=== PATIENT | male | born 1945 | race Caucasian/White ===

== ENCOUNTER 2020-08-08 12:54 | Inpatient (IN) | payer MEDICARE ==
[2020-08-08] MEDS ORDERED: ASPIRIN 81 MG PO STA (12:55)
[2020-08-08] MEDS ORDERED: NITROGLYCERIN SL TABS 0.4 MG TAB SUBLINGUAL PRN (12:55)
[2020-08-08] MEDS ORDERED: HEPARIN SODIUM,PORCINE 5,000 UNIT/ML 1 ML VIAL IV PRN (12:55)
[2020-08-08] MEDS ORDERED: NITROGLYCERIN-D5W PMX 50 MG in DEXTROSE/WATER 1 250ML.BAG IV ONE (12:57)
[2020-08-08] MEDS: HEPARIN SOD,PORK IN 0.45% NACL 25,000 UNIT in 0.45% NACL 1 250ML.BAG IV SCH (13:14)
--- NOTE | 2020-08-08 13:30 | ED ---
General Adult HPI - General Chief complaint: Chest Pain Stated complaint: Cardiac issues Time Seen by Provider: 08/08/20 12:55 Source: patient, RN/MD (Spoke with Dr. Hopson from [facility]), RN notes reviewed, old records reviewed (Review of report from [facility]) Mode of arrival: EMS Limitations: no limitations - History of Present Illness Initial comments: Patient is a pleasant 74-year-old male presenting to the emergency Department as a transfer from [facility] for chest pain. Patient woke with symptoms this morning. Symptoms are near resolved at this time. Patient has had chest pressure without radiation. No associated dyspnea, nausea, or diaphoresis. Patient was noticed to have normal EKG 2 with elevated troponin of 0.19 there. Patient was given heparin and nitroglycerin drips with improvement of symptoms. Patient has previously seen Dr. Enriquez here. Patient states he did have similar symptoms with heart attack years ago. - Related Data Allergies Allergy/AdvReac Type Severity Reaction Status Date / Time No Known Allergies Allergy Verified 08/08/20 13:09 Review of Systems ROS Statement: Those systems with pertinent positive or pertinent negative responses have been documented in the HPI. ROS Other: All systems not noted in ROS Statement are negative. Constitutional: Denies: fever Eyes: Denies: eye pain ENT: Denies: ear pain Respiratory: Denies: dyspnea Cardiovascular: Reports: chest pain Endocrine: Denies: fatigue Gastrointestinal: Denies: abdominal pain Genitourinary: Denies: dysuria Musculoskeletal: Denies: back pain Skin: Denies: rash Neurological: Denies: weakness Past Medical History Past Medical History: Hypertension, Myocardial Infarction ([place]) History of Any Multi-Drug Resistant Organisms: None Reported Past Surgical History: Orthopedic Surgery Smoking Status: Current every day smoker Past Alcohol Use History: None Reported Past Drug Use History: None Reported General Exam Limitations: no limitations General appearance: alert, in no apparent distress Head exam: Present: normocephalic Eye exam: Present: normal appearance Neck exam: Present: normal inspection Respiratory exam: Present: normal lung sounds bilaterally. Absent: chest wall tenderness Cardiovascular Exam: Present: regular rate, normal rhythm Expanded Peripheral pulses: 2+: Radial (R), Radial (L), Dorsalis Pedis (R), Dorsalis Pedis (L) GI/Abdominal exam: Present: soft. Absent: tenderness Extremities exam: Present: normal inspection. Absent: pedal edema, calf tender ness Neurological exam: Present: alert Psychiatric exam: Present: normal affect, normal mood Skin exam: Present: normal color Course Vital Signs 08/08/20 08/08/20 13:02 13:20 Temperature 98.0 F Pulse Rate 71 70 Respiratory 18 18 Rate Blood Pressure 178/114 175/123 O2 Sat by Pulse 97 94 L Oximetry Medical Decision Making - Medical Decision Making Case was discussed with Dr. shipman, who will admit covering for Dr. [place]. Case also discussed with Dr. Veliz with cardiology. Disposition Clinical Impression: Acute non-ST elevation myocardial infarction (NSTEMI) Disposition: ADMITTED IP TO THIS HOSP Is patient prescribed a controlled substance at d/c from ED?: No Decision Time: 13:31
[2020-08-08] MEDS ORDERED: MORPHINE SULFATE 4 MG/ML SYRINGE IVP STA (14:00)
--- NOTE | 2020-08-08 15:46 | P.HPIM ---
History of Present Illness this is a pleasant 74 years old male with past medical history of hypertension, possible myocardial infarction, smokes cigarettes.patient was transferred from [facility] for chest pain.patient states that he has chest pain of one-day duration, and the left side, nonradiating, rated as 10/10 in severity currently feels better after he got morphine. With little dyspnea. Patient denies abdominal pain or nausea vomiting. No diarrhea. No burning in urination. No fever patient states that he smokes half pack per day, he drinks liquor dailybut he did not specify how Much. He denies illicit drugs on admission his vitals were stable however his blood pressure was on the high side 181/100. EKG showing sinus rhythm with PACs, with a rate at 74 with bifascicular block. at [facility] his troponin were elevated at 0.19 on admission his blood pressure was elevated 181/100, improved to 151/100 Patient is already on heparin drip and nitroglycerin drips upon discharge from [facility]. EKG from [facility] showing normal sinus rhythm at [address]-T changes and 68 BPM with no significant ST-T changes. Labs: WBC of 9.4K, hemoglobin 15.4, platelets 260 8K. INR 0.9. Creatinine is elevated to 1.6, sodium is low 127. Magnesium 2.0, potassium 4.2. Troponin is elevated 0.19. Covid this nondetected by rapid test Review of Systems CONSTITUTIONAL: No fever, no malaise, no fatigue. HEENT: No recent visual problems or hearing problems. Denied any sore throat. CARDIOVASCULAR: No orthopnea, PND, no palpitations, no syncope. PULMONARY: No shortness of breath, no cough, no hemoptysis. GASTROINTESTINAL: No diarrhea, no nausea, no vomiting, no abdominal pain. Normoactive bowel sounds. NEUROLOGICAL: No headaches, no weakness, no numbness. HEMATOLOGICAL: Denies any bleeding or petechiae. GENITOURINARY: Denies any burning micturition, frequency, or urgency. MUSCULOSKELETAL/RHEUMATOLOGICAL: Denies any joint pain, swelling, or any muscle pain. ENDOCRINE: Denies any polyuria or polydipsia. Past Medical History Past Medical History: Hypertension, Myocardial Infarction ([place]) History of Any Multi-Drug Resistant Organisms: None Reported Past Surgical History: Orthopedic Surgery Smoking Status: Current every day smoker Past Alcohol Use History: None Reported Past Drug Use History: None Reported Medications and Allergies Home Medications Medication Instructions Recorded Confirmed Type Aspirin [Winona Aspirin EC] 81 mg PO DAILY@1200 08/08/20 08/08/20 History Gabapentin 300 mg PO TID 08/08/20 08/08/20 History Ibuprofen [Motrin] 800 mg PO TID 08/08/20 08/08/20 History Metoprolol Tartrate [Lopressor] 50 mg PO DAILY 08/08/20 08/08/20 History busPIRone HCL 10 mg PO BID 08/08/20 08/08/20 History lisinopriL [Prinivil] 20 mg PO HS 08/08/20 08/08/20 History oxyCODONE-APAP 10-325MG [Percocet 1 tab PO BID 08/08/20 08/08/20 History 10-325 mg] Allergies Allergy/AdvReac Type Severity Reaction Status Date / Time No Known Allergies Allergy Verified 08/08/20 14:42 Physical Exam Vitals: Vital Signs Temp Pulse Resp BP Pulse Ox 08/08/20 13:59 74 18 181/100 100 08/08/20 13:20 70 18 175/123 94 L 08/08/20 13:02 98.0 F 71 18 178/114 97 Intake and Output 08/07/20 08/08/20 08/08/20 22:59 06:59 14:59 Intake Total 0.2 Balance 0.2 Intake: Intake, IV Titration 0.2 Amount Nitroglycerin-D5w Pmx 50 0.2 mg In Dextrose/Water 1 250ml.bag @ 5 MCG/MIN 1.5 mls/hr IV .Q24H ONE Rx#: [id number] Other: Weight 89.811 kg GENERAL: The patient is alert and oriented x3, not in any acute distress. Well developed, well nourished. HEENT: Pupils are round and equally reacting to light. EOMI. No scleral icterus. No conjunctival pallor. Normocephalic, atraumatic. No pharyngeal erythema. No thyromegaly. CARDIOVASCULAR: S1 and S2 present. No murmurs, rubs, or gallops. PULMONARY: Chest is clear to auscultation, no wheezing or crackles. ABDOMEN: Soft, nontender, nondistended, normoactive bowel sounds. No palpable organomegaly. MUSCULOSKELETAL: No joint swelling or deformity. EXTREMITIES: No cyanosis, clubbing, or pedal edema. NEUROLOGICAL: Gross neurological examination did not reveal any focal deficits. SKIN: No rashes. No petechiae Assessment and Plan Assessment: possible non-STEMI Hypertension, uncontrolled acute kidney injury Hyponatremia Nicotine dependence alcohol abuse Plan: this is a pleasant 74 years old male who presents with non-STEMI. Continue with heparin drip, nitroglycerindrip.cardiologyteam were consulted by emergency room team will follow up. Monitor sodium and creatinine and troponin closely.check echocardiogram. Telemetry.monitor blood pressure Labs and medication were reviewed.. Continue same treatment. Continue with symptomatic treatment. Resume home medication. Monitor lytes and vitals. DVT and GI prophylaxis. Further recommendations depends on the clinical course of the patient DVT prophylaxis: heparin GI Prophylaxis: Pepcid PT/OT: Pending Prognosis is guarded
[2020-08-08 16:15] LABS: Basophils # (A) 0.1 k/uL (0-0.2); Basophils % (A) 1 %; Eosinophils # (A) 0.3 k/uL (0-0.7); Eosinophils % (A) 4 %; HCT 47.3 % (39.0-53.0); HGB 16.1 gm/dL (13.0-17.5); Lymphocytes # (A) 1.5 k/uL (1.0-4.8); Lymphocytes % (A) 19 %; MCH 34.2 pg (25.0-35.0); MCHC 33.9 g/dL (31.0-37.0); MCV 100.7 fL (80.0-100.0); Mean Platelet Volume 6.5; Monocytes # (A) 0.5 k/uL (0-1.0); Monocytes % (A) 6 %; Neutrophils # (A) 5.6 k/uL (1.3-7.7); Neutrophils % (A) 68 %; Platelet Count 279 k/uL (150-450); RDW 11.8 % (11.5-15.5); WBC 8.2 k/uL (3.8-10.6)
[2020-08-08 16:27] LABS: Calcium 8.9 mg/dL (8.4-10.2); Potassium 4.4 mmol/L (3.5-5.1)
[2020-08-08] MEDS: GABAPENTIN 100 MG CAP PO SCH ×2 (16:37→21:57)
[2020-08-08] MEDS: METOPROLOL TARTRATE 50 MG TAB PO SCH (16:37)
[2020-08-08] MEDS: lisinopriL 20 MG TAB PO SCH (21:41)
[2020-08-08] MEDS: busPIRone HCl 10 MG TAB PO SCH (21:41)
[2020-08-08] MEDS: GABAPENTIN 300 MG CAP PO SCH (22:31)
[2020-08-09] MEDS ORDERED: ACETAMINOPHEN TAB 325 MG TAB PO PRN (01:22)
[2020-08-09] MEDS: hydrALAZINE HCL 20 MG/ML 1 ML VIAL IVP PRN (03:52)
[2020-08-09] MEDS ORDERED: KETOROLAC 15 MG/ML 1 ML VIAL IVP STA (06:00)
[2020-08-09] MEDS ORDERED: NITROGLYCERIN SL TABS 0.4 MG TAB SUBLINGUAL STA (06:51)
[2020-08-09] MEDS ORDERED: HYDROmorphone 0.5 MG/0.5 ML SYRINGE IVP STA (06:52)
[2020-08-09] MEDS ORDERED: amLODIPine 5 MG TAB PO STA ×2 (06:52→12:01)
[2020-08-09] MEDS: HEPARIN SOD,PORK IN 0.45% NACL 25,000 UNIT in 0.45% NACL 1 250ML.BAG IV SCH (07:04)
[2020-08-09 07:59] LABS: Basophils % (A) 0 %; Eosinophils # (A) 0.3 k/uL (0-0.7); Eosinophils % (A) 3 %; HCT 46.4 % (39.0-53.0); HGB 15.4 gm/dL (13.0-17.5); Lymphocytes # (A) 1.4 k/uL (1.0-4.8); Lymphocytes % (A) 15 %; MCH 33.1 pg (25.0-35.0); MCHC 33.2 g/dL (31.0-37.0); MCV 99.5 fL (80.0-100.0); Mean Platelet Volume 6.5; Monocytes # (A) 0.6 k/uL (0-1.0); Monocytes % (A) 6 %; Neutrophils % (A) 75 %; Platelet Count 301 k/uL (150-450); RBC 4.66 m/uL (4.30-5.90); RDW 12.4 % (11.5-15.5); WBC 9.4 k/uL (3.8-10.6)
[2020-08-09 08:12] LABS: Calcium 9.1 mg/dL (8.4-10.2); Potassium 4.3 mmol/L (3.5-5.1)
--- NOTE | 2020-08-09 08:42 | P.PN ---
Subjective this is a pleasant 74 years old male with past medical history of hypertension, possible myocardial infarction, smokes cigarettes.patient was transferred from [facility] for chest pain.patient states that he has chest pain of one-day duration, and the left side, nonradiating, rated as 10/10 in severity currently feels better after he got morphine. With little dyspnea. Patient denies abdominal pain or nausea vomiting. No diarrhea. No burning in urination. No fever patient states that he smokes half pack per day, he drinks liquor dailybut he did not specify how Much. He denies illicit drugs on admission his vitals were stable however his blood pressure was on the high side 181/100. EKG showing sinus rhythm with PACs, with a rate at 74 with bifascicular block. at [facility] his troponin were elevated at 0.19 on admission his blood pressure was elevated 181/100, improved to 151/100 Patient is already on heparin drip and nitroglycerin drips upon discharge from [facility]. EKG from [facility] showing normal sinus rhythm at [address]-T changes and 68 BPM with no significant ST-T changes. Labs: WBC of 9.4K, hemoglobin 15.4, platelets 260 8K. INR 0.9. Creatinine is elevated to 1.6, sodium is low 127. Magnesium 2.0, potassium 4.2. Troponin is elevated 0.19. Covid this nondetected by rapid test 08/09/2020 Patient with minimal chest pain today and he continued to be on heparin drip and nitro drip blood pressure this morning is 159/95, rest of vitals are stable. His blood pressure is 159/95, rest of vitals are stable. Heart rate 72. Hemoglobin on postoperative CBC is normal. Sodium 132, recipient is unremarkable. Creatinine is came back to normal at 1.0 We will continue with aspirin, metoprolol. [employer] team on the case and they are going to evaluated the patient. Review of Systems CONSTITUTIONAL: No fever, no malaise, no fatigue. HEENT: No recent visual problems or hearing problems. Denied any sore throat. CARDIOVASCULAR: No orthopnea, PND, no palpitations, no syncope. PULMONARY: No shortness of breath, no cough, no hemoptysis. GASTROINTESTINAL: No diarrhea, no nausea, no vomiting, no abdominal pain. Normoactive bowel sounds. NEUROLOGICAL: No headaches, no weakness, no numbness. HEMATOLOGICAL: Denies any bleeding or petechiae. Active Medications Generic Name Dose Route Start Last Admin Trade Name Freq PRN Reason Stop Dose Admin Acetaminophen 650 mg 08/09/20 01:22 08/09/20 01:33 Acetaminophen Tab 325 Mg Tab PO 650 mg Q6HR PRN Administration Fever and/ or Pain Aspirin 325 mg 08/09/20 09:00 Aspirin 325 Mg Tab PO DAILY FRANCIS Buspirone HCl 10 mg 08/08/20 21:00 08/08/20 21:41 Buspirone Hcl 10 Mg Tab PO 10 mg BID FRANCIS Administration Gabapentin 300 mg 08/08/20 22:00 08/08/20 22:31 Gabapentin 300 Mg Cap PO Not Given [facility] Heparin Sodium (Porcine) 0 unit 08/08/20 12:55 08/09/20 01:41 Heparin Sodium,Porcine 5,000 Unit/Ml 1 Ml Vial IV 2,225 unit Q6HR PRN Administration Low PTT Protocol Hydralazine HCl 10 mg 08/09/20 03:37 08/09/20 03:52 Hydralazine Hcl 20 Mg/Ml 1 Ml Vial IVP 10 mg Q6HR PRN Administration Blood Pressure - High Heparin Sodium/Sodium Chloride 250 mls @ 10.005 mls/hr 08/08/20 13:00 08/09/20 07:04 25,000 unit/ Sodium Chloride IV 13.14 units/kg/hr .Q24H FRANCIS 11.801 mls/hr Administration Protocol 11.14 UNITS/KG/HR Lisinopril 20 mg 08/08/20 21:00 08/08/20 21:41 Lisinopril 20 Mg Tab PO 20 mg HS FRANCIS Administration Metoprolol Tartrate 50 mg 08/08/20 15:45 08/08/20 16:37 Metoprolol Tartrate 50 Mg Tab PO 50 mg DAILY FRANCIS Administration Nitroglycerin 0.4 mg 08/08/20 12:55 08/09/20 06:57 Nitroglycerin Sl Tabs 0.4 Mg Tab SUBLINGUAL 0.4 mg Q5M PRN Administration Chest Pain Sodium Chloride 10 ml 08/08/20 21:00 08/08/20 21:41 Sodium Chloride 0.9% Flush 10 Ml Syringe IV 10 ml BID FRANCIS Administration Objective - Vital Signs Vital signs: Vital Signs Temp 98.2 F 08/09/20 03:14 Pulse 72 08/09/20 04:00 Resp 16 08/09/20 04:00 BP 159/95 08/09/20 07:08 Pulse Ox 96 08/09/20 03:14 Intake & Output 08/08/20 08/09/20 08/09/20 18:59 06:59 18:59 Intake Total 12.65 123.062 65.299 Output Total 1050 Balance 12.65 -926.938 65.299 Weight 89.811 kg 87.5 kg Intake: Intake, IV Titration 12.65 123.062 65.299 Amount Heparin Sod,Pork in 0.45% 123.062 65.299 NaCl 25,000 unit In 0.45 % NaCl 1 250ml.bag @ 11. 14 UNITS/KG/HR 10.005 mls /hr IV .Q24H FRANCIS Rx#: [id number] Nitroglycerin-D5w Pmx 50 12.65 mg In Dextrose/Water 1 250ml.bag @ 5 MCG/MIN 1.5 mls/hr IV .Q24H ONE Rx#: [id number] Output: Urine 1050 Other: Voiding Method Urinal # Voids 1 - Exam GENERAL: The patient is alert and oriented x3, not in any acute distress. Well developed, well nourished. HEENT: Pupils are round and equally reacting to light. EOMI. No scleral icterus. No conjunctival pallor. Normocephalic, atraumatic. No pharyngeal erythema. No thyromegaly. CARDIOVASCULAR: S1 and S2 present. No murmurs, rubs, or gallops. PULMONARY: Chest is clear to auscultation, no wheezing or crackles. ABDOMEN: Soft, nontender, nondistended, normoactive bowel sounds. No palpable organomegaly. MUSCULOSKELETAL: No joint swelling or deformity. EXTREMITIES: No cyanosis, clubbing, or pedal edema. NEUROLOGICAL: Gross neurological examination did not reveal any focal deficits. SKIN: No rashes. no petechiae. - Labs CBC & Chem 7: 08/09/20 07:36 08/09/20 07:36 Labs: Abnormal Lab Results - Last 24 Hours (Table) 08/08/20 08/08/20 08/08/20 Range/Units 15:15 15:59 15:59 MCV 100.7 H (80.0-100.0) fL APTT 45.0 H (22.0-30.0) sec Sodium 131 L (137-145) mmol/L Chloride 97 L (98-107) mmol/L BUN 30 H (9-20) mg/dL Creatinine 1.35 H (0.66-1.25) mg/dL Glucose 144 H (74-99) mg/dL HDL Cholesterol (40-60) mg/dL 08/09/20 08/09/20 08/09/20 Range/Units 00:43 07:36 07:36 MCV (80.0-100.0) fL APTT 35.8 H 45.1 H (22.0-30.0) sec Sodium 132 L (137-145) mmol/L Chloride (98-107) mmol/L BUN 23 H (9-20) mg/dL Creatinine (0.66-1.25) mg/dL Glucose 131 H (74-99) mg/dL HDL Cholesterol 93 H (40-60) mg/dL Assessment and Plan Assessment: possible non-STEMI Hypertension, uncontrolled acute kidney injury Hyponatremia Nicotine dependence alcohol abuse Plan: this is a pleasant 74 years old male who presents with non-STEMI. Continue with heparin drip, nitroglycerindrip.cardiologyteam were consulted by emergency room team will follow up. Monitor sodium and creatinine and troponin closely.check echocardiogram. Telemetry.monitor blood pressure Labs and medication were reviewed.. Continue same treatment. Continue with symptomatic treatment. Resume home medication. Monitor lytes and vitals. DVT and GI prophylaxis. Further recommendations depends on the clinical course of the patient DVT prophylaxis: heparin GI Prophylaxis: Pepcid PT/OT: Pending Prognosis is guarded
--- NOTE | 2020-08-09 08:57 | P.CRDCN ---
History of Present Illness Consult date: 08/09/20 Consult reason: chest pain Chief complaint: Chest pain History of present illness: This is a 74-year-old gentleman who follows with Dr. Zehra Enriquez in the office. He has a history of hypertension, questionable prior myocardial infarction in the past, he never underwent a cardiac catheterization in the past according to him, history of nicotine dependence, patient also drinks alcoholic beverages daily. Patient did have a nuclear stress test performed in the office in June 2018 which revealed some inferior lateral fixed defect with global decrease in contractility. The patient presented to [facility] with symptoms of chest discomfort. He states that he woke up in the morning had midsternal chest discomfort, states that it was a moderate to severe, worsened with taking a deep breath. Patient does have a productive cough, he states that this is normal for him for several years of smoking. He does state at that time it was hard to take a deep breath but didn't feel more short of breath than his usual. He denies any diaphoresis. EKG shows a normal sinus rhythm with a right bundle branch block pattern, left anterior fascicular block. Upon review of the rhythm strips from the EMS, it does appear that during time of chest pain patient did have some ST changes noted. His blood pressure on arrival was 178/114, heart rate in the 70s, respirations 18, temp 98.2, 97% on 2 L of ox ygen. He was initiated here on IV heparin and IV nitroglycerin drip. Blood pressure this morning 158/90 with a heart rate in the 70s. IV nitroglycerin was discontinued this morning because patient was complaining of a severe headache. White blood cell count 8.2, hemoglobin 16.1, platelet count 279. Sodium 131, potassium 4.4, BUN 30, creatinine 1.3. Troponins 0.025, 0.0-4, 0.018. Patient is currently on IV heparin drip, aspirin, lisinopril 20 mg daily, metoprolol sesame 50 mg daily. We will start the patient on Lipitor, obtain an echocardiogram with Doppler study. Past Medical History Past Medical History: Hypertension, Myocardial Infarction ([place]) History of Any Multi-Drug Resistant Organisms: None Reported Past Surgical History: Orthopedic Surgery Smoking Status: Current every day smoker Past Alcohol Use History: None Reported Past Drug Use History: None Reported Medications and Allergies Home Medications Medication Instructions Recorded Confirmed Type Aspirin [Wildwood Aspirin EC] 81 mg PO DAILY@1200 08/08/20 08/08/20 History Gabapentin 300 mg PO TID 08/08/20 08/08/20 History Ibuprofen [Motrin] 800 mg PO TID 08/08/20 08/08/20 History Metoprolol Tartrate [Lopressor] 50 mg PO DAILY 08/08/20 08/08/20 History busPIRone HCL 10 mg PO BID 08/08/20 08/08/20 History lisinopriL [Prinivil] 20 mg PO HS 08/08/20 08/08/20 History oxyCODONE-APAP 10-325MG [Percocet 1 tab PO BID 08/08/20 08/08/20 History 10-325 mg] Allergies Allergy/AdvReac Type Severity Reaction Status Date / Time No Known Allergies Allergy Verified 08/08/20 14:42 Physical Exam Vitals: Vital Signs Temp Pulse Pulse Resp BP BP Pulse Ox 08/09/20 07:08 159/95 08/09/20 07:00 156/107 08/09/20 06:48 220/115 08/09/20 04:33 187/100 08/09/20 04:00 72 16 08/09/20 03:14 98.2 F 72 16 161/131 96 08/09/20 00:00 65 17 08/08/20 23:18 98.1 F 65 17 154/95 97 08/08/20 20:00 97.7 F 65 17 161/95 95 08/08/20 17:32 154/90 08/08/20 16:00 98.2 F 67 16 177/93 98 08/08/20 15:42 80 18 151/100 97 08/08/20 13:59 74 18 181/100 100 08/08/20 13:20 70 18 175/123 94 L 08/08/20 13:02 98.0 F 71 18 178/114 97 Intake and Output 08/08/20 08/09/20 08/09/20 22:59 06:59 14:59 Intake Total 12.45 123.062 65.299 Output Total 750 300 Balance -737.55 -176.938 65.299 Intake: Intake, IV Titration 12.45 123.062 65.299 Amount Heparin Sod,Pork in 0.45% 123.062 65.299 NaCl 25,000 unit In 0.45 % NaCl 1 250ml.bag @ 11. 14 UNITS/KG/HR 10.005 mls /hr IV .Q24H [facility] Rx#: [id number] Nitroglycerin-D5w Pmx 50 12.45 mg In Dextrose/Water 1 250ml.bag @ 5 MCG/MIN 1.5 mls/hr IV .Q24H [facility] Rx#: [id number] Output: Urine 750 300 Other: Voiding Method Urinal Urinal # Voids 3 1 Weight 87.5 kg PHYSICAL EXAMINATION: GENERAL: 74-year-old gentleman in no acute distress at the time of my examination HEENT: Head is atraumatic, normocephalic. Pupils equal, round. Sclera anicteric. Conjunctiva are clear. Mucous membranes of the mouth are moist. Neck is supple. There is no elevated jugular venous pressure. No carotid bruit is heard. HEART EXAMINATION: Heart S1, S2 normal. No murmur or gallop heard. CHEST EXAMINATION:Lungs reveal scattered coarse rhonchi throughout. ABDOMEN: Soft, obese, nontender. Bowel sounds are heard. No organomegaly noted. EXTREMITIES: 2+ peripheral pulses with trace evidence of peripheral edema and no calf tenderness noted. NEUROLOGIC patient is awake, alert and oriented X3 . Results 08/09/20 07:36 08/09/20 07:36 Cardiac Enzymes 08/08/20 08/08/20 08/08/20 Range/Units 15:15 18:45 22:56 Troponin I 0.025 0.024 0.018 (0.000-0.034) ng/mL Coagulation 08/08/20 08/09/20 08/09/20 Range/Units 15:15 00:43 07:36 APTT 45.0 H 35.8 H 45.1 H (22.0-30.0) sec Lipids 08/09/20 Range/Units 07:36 Triglycerides 95 (<150) mg/dL Cholesterol 197 (<200) mg/dL HDL Cholesterol 93 H (40-60) mg/dL CBC 08/08/20 08/09/20 Range/Units 15:59 07:36 WBC 8.2 9.4 (3.8-10.6) k/uL RBC 4.70 4.66 (4.30-5.90) m/uL Hgb 16.1 15.4 (13.0-17.5) gm/dL Hct 47.3 46.4 (39.0-53.0) % Plt Count 279 301 (150-450) k/uL Comprehensive Metabolic Panel 08/08/20 08/09/20 Range/Units 15:59 07:36 Sodium 131 L 132 L (137-145) mmol/L Potassium 4.4 4.3 (3.5-5.1) mmol/L Chloride 97 L 101 (98-107) mmol/L Carbon Dioxide 28 25 (22-30) mmol/L BUN 30 H 23 H (9-20) mg/dL Creatinine 1.35 H 1.05 (0.66-1.25) mg/dL Glucose 144 H 131 H (74-99) mg/dL Calcium 8.9 9.1 (8.4-10.2) mg/dL Current Medications Generic Name Dose Route Start Last Admin Trade Name Freq PRN Reason Stop Dose Admin Acetaminophen 650 mg 08/09/20 01:22 08/09/20 01:33 Acetaminophen Tab 325 Mg Tab PO 650 mg Q6HR PRN Administration Fever and/ or Pain Aspirin 325 mg 08/09/20 09:00 Aspirin 325 Mg Tab PO DAILY [facility] Buspirone HCl 10 mg 08/08/20 21:00 08/08/20 21:41 Buspirone Hcl 10 Mg Tab PO 10 mg BID [facility] Administration Gabapentin 300 mg 08/08/20 22:00 08/08/20 22:31 Gabapentin 300 Mg Cap PO Not Given TID [facility] Heparin Sodium (Porcine) 0 unit 08/08/20 12:55 08/09/20 01:41 Heparin Sodium,Porcine 5,000 Unit/Ml 1 Ml Vial IV 2,225 unit Q6HR PRN Administration Low PTT Protocol Hydralazine HCl 10 mg 08/09/20 03:37 08/09/20 03:52 Hydralazine Hcl 20 Mg/Ml 1 Ml Vial IVP 10 mg Q6HR PRN Administration Blood Pressure - High Heparin Sodium/Sodium Chloride 250 mls @ 10.005 mls/hr 08/08/20 13:00 08/09/20 07:04 25,000 unit/ Sodium Chloride IV 13.14 units/kg/hr .Q24H [facility] 11.801 mls/hr Administration Protocol 11.14 UNITS/KG/HR Lisinopril 20 mg 08/08/20 21:00 08/08/20 21:41 Lisinopril 20 Mg Tab PO 20 mg HS [facility] Administration Metoprolol Tartrate 50 mg 08/08/20 15:45 08/08/20 16:37 Metoprolol Tartrate 50 Mg Tab PO 50 mg DAILY [facility] Administration Nitroglycerin 0.4 mg 08/08/20 12:55 08/09/20 06:57 Nitroglycerin Sl Tabs 0.4 Mg Tab SUBLINGUAL 0.4 mg Q5M PRN Administration Chest Pain Sodium Chloride 10 ml 08/08/20 21:00 08/08/20 21:41 Sodium Chloride 0.9% Flush 10 Ml Syringe IV 10 ml BID [facility] Administration Intake and Output 08/08/20 08/09/20 08/09/20 22:59 06:59 14:59 Intake Total 12.45 123.062 65.299 Output Total 750 300 Balance -737.55 -176.938 65.299 Intake: Intake, IV Titration 12.45 123.062 65.299 Amount Heparin Sod,Pork in 0.45% 123.062 65.299 NaCl 25,000 unit In 0.45 % NaCl 1 250ml.bag @ 11. 14 UNITS/KG/HR 10.005 mls /hr IV .Q24H [facility] Rx#: [id number] Nitroglycerin-D5w Pmx 50 12.45 mg In Dextrose/Water 1 250ml.bag @ 5 MCG/MIN 1.5 mls/hr IV .Q24H [facility] Rx#: [id number] Output: Urine 750 300 Other: Voiding Method Urinal Urinal # Voids 3 1 Weight 87.5 kg 08/09/20 07:36 08/09/20 07:36 EKG Interpretations (text) EKG shows a normal sinus rhythm with a right bundle branch block pattern and left anterior fascicular block, nonspecific ST-T wave changes Assessment and Plan Plan: Assessment and plan #1 chest pain, possible acute coronary syndrome. Troponins of 0.025, 0.0-4, 0.018. EKG shows a normal sinus rhythm with a right bundle branch block pattern and left anterior block. #2 accelerated hypertension #3 nicotine dependence #4 prior silent myocardial infarction. The patient #5 daily EtOH use Plan We will obtain an echocardiogram with Doppler study. Continue an aspirin daily, IV heparin, lisinopril 20 mg daily, metoprolol 50 mg daily, add a statin to the patient's medication regime. Patient has been advised that he may need to undergo cardiac catheterization, the risks and the benefits were explained to the patient in detail. Further recommendations to follow. DNP note has been reviewed, I agree with a documented findings and plan of care. Patient was seen and examined.
[2020-08-09] MEDS ORDERED: ASPIRIN 325 MG TAB PO SCH (09:00)
[2020-08-09] MEDS: METOPROLOL TARTRATE 50 MG TAB PO SCH (09:21)
[2020-08-09] MEDS: busPIRone HCl 10 MG TAB PO SCH ×2 (09:21→21:21)
--- NOTE | 2020-08-09 10:31 | ECHOF ---
Referral Reason:nstemi MEASUREMENTS -------- HEIGHT: 182.9 cm WEIGHT: 85.7 kg BP: IVSd: 1.4 cm (0.6 - 1.1) LVIDd: 5.4 cm (3.9 - 5.3) LVPWd: 1.6 cm (0.6 - 1.1) IVSs: 1.7 cm LVIDs: 3.3 cm LVPWs: 2.4 cm LAESV Index (A-L): 32.27 ml/m Ao Diam: 3.5 cm (2.0 - 3.7) MV EXCURSION: 24.338 mm (> 18.000) MV EF SLOPE: 44 mm/s (70 - 150) EPSS: 0.7 cm MV E Milton: 0.48 m/s MV DecT: 309 ms MV A [place]: 1.06 m/s MV E/A Ratio: 0.45 RAP: 5.00 mmHg RVSP: 14.88 mmHg FINDINGS -------- Sinus rhythm. This was a techncally difficult study with suboptimal views, , Lumason utilized for enhancement of im ages. The left ventricular size is normal. There is mild concentric left ventricular hypertrophy. Overa ll left ventricular systolic function is low-normal with, an EF between 50 - 55 %. The right ventricle is normal in size. The left atrium is mildly dilated. LA is midly dilated 29-33ml/m2. The right atrial size is normal. There is mild aortic valve sclerosis. There is no evidence of aortic regurgitation. Mild mitral annular calcification present. Mild mitral regurgitation is present. Mild tricuspid regurgitation present. Right ventricular systolic pressure is normal at < 35 mmHg. The pulmonic valve was not well visualized. The aortic root size is normal. There is no pericardial effusion. CONCLUSIONS -------- 1. This was a techncally difficult study with suboptimal views, , Lumason utilized for enhancement of images. 2. The left ventricular size is normal. 3. There is mild concentric left ventricular hypertrophy. 4. Overall left ventricular systolic function is low-normal with, an EF between 50 - 55 %. 5. The right ventricle is normal in size. 6. The left atrium is mildly dilated. 7. LA is midly dilated 29-33ml/m2. 8. The right atrial size is normal. 9. There is mild aortic valve sclerosis. 10. Mild mitral annular calcification present. 11. Mild mitral regurgitation is present. 12. Mild tricuspid regurgitation present. 13. The pulmonic valve was not well visualized. 14. The aortic root size is normal. 15. There is no pericardial effusion. STAVE SAW OPERATOR: Cheyenne Laguna RDCS
[2020-08-09] MEDS: GABAPENTIN 300 MG CAP PO SCH ×3 (10:52→21:21)
[2020-08-09] MEDS ORDERED: NON FORMULARY DRUG (Aspirin [St. Joseph Aspirin Ec] 81 MG Tablet.Dr) PO SCH (12:00)
[2020-08-09] MEDS ORDERED: LORazepam 2 MG/ML INJ IV PRN ×3 (15:36)
[2020-08-09] MEDS ORDERED: ONDANSETRON 4 MG/2 ML VIAL IVP PRN (15:37)
[2020-08-09] MEDS: lisinopriL 20 MG TAB PO SCH (21:21)
[2020-08-10] MEDS: hydrALAZINE HCL 20 MG/ML 1 ML VIAL IVP PRN (00:08)
[2020-08-10] MEDS: HEPARIN SOD,PORK IN 0.45% NACL 25,000 UNIT in 0.45% NACL 1 250ML.BAG IV SCH (06:44)
[2020-08-10 08:03] LABS: Basophils % (A) 0 %; Eosinophils # (A) 0.1 k/uL (0-0.7); Eosinophils % (A) 2 %; HCT 45.6 % (39.0-53.0); HGB 15.1 gm/dL (13.0-17.5); Lymphocytes # (A) 1.4 k/uL (1.0-4.8); Lymphocytes % (A) 20 %; MCH 33.6 pg (25.0-35.0); MCV 101.7 fL (80.0-100.0); Mean Platelet Volume 6.8; Monocytes # (A) 0.5 k/uL (0-1.0); Monocytes % (A) 7 %; Neutrophils # (A) 4.9 k/uL (1.3-7.7); Neutrophils % (A) 68 %; Platelet Count 286 k/uL (150-450); RBC 4.49 m/uL (4.30-5.90); RDW 12.5 % (11.5-15.5); WBC 7.2 k/uL (3.8-10.6)
[2020-08-10 08:11] LABS: African American GFR (CKD) >90 (>60 ml/min/1.73 sqM); Anion Gap 5 mmol/L; Blood Urea Nitrogen 15 mg/dL (9-20); Carbon Dioxide 28 mmol/L (22-30); Chloride 99 mmol/L (98-107); Glucose 119 mg/dL (74-99); Non-African American GFR(CKD) 87 (>60 ml/min/1.73 sqM); Potassium 4.5 mmol/L (3.5-5.1); Sodium 132 mmol/L (137-145)
[2020-08-10] MEDS: GABAPENTIN 300 MG CAP PO SCH ×3 (09:13→21:38)
[2020-08-10] MEDS: busPIRone HCl 10 MG TAB PO SCH ×2 (09:13→21:37)
[2020-08-10] MEDS: ASPIRIN 81 MG PO SCH (09:13)
[2020-08-10] MEDS: METOPROLOL TARTRATE 50 MG TAB PO SCH (09:13)
[2020-08-10] MEDS ORDERED: SODIUM CHLORIDE 0.9% 1,000 ML in EMPTY BAG 1 BAG IV ONE (09:29)
[2020-08-10] MEDS ORDERED: ALPRAZolam 0.5 MG TAB PO PRN (09:29)
[2020-08-10] MEDS ORDERED: NITROGLYCERIN SL TABS 0.4 MG TAB SUBLINGUAL PRN (09:29)
[2020-08-10] MEDS ORDERED: ATORVASTATIN 80 MG TAB PO STA (09:29)
[2020-08-10] MEDS ORDERED: ASPIRIN 325 MG TAB PO STA ×2 (09:29→09:43)
[2020-08-10] MEDS ORDERED: ALPRAZolam 0.25 MG TAB PO PRN (09:29)
--- NOTE | 2020-08-10 10:32 | P.PN ---
Subjective this is a pleasant 74 years old male with past medical history of hypertension, possible myocardial infarction, smokes cigarettes.patient was transferred from [facility] for chest pain.patient states that he has chest pain of one-day duration, and the left side, nonradiating, rated as 10/10 in severity currently feels better after he got morphine. With little dyspnea. Patient denies abdominal pain or nausea vomiting. No diarrhea. No burning in urination. No fever patient states that he smokes half pack per day, he drinks liquor dailybut he did not specify how Much. He denies illicit drugs on admission his vitals were stable however his blood pressure was on the high side 181/100. EKG showing sinus rhythm with PACs, with a rate at 74 with bifascicular block. at [facility] his troponin were elevated at 0.19 on admission his blood pressure was elevated 181/100, improved to 151/100 Patient is already on heparin drip and nitroglycerin drips upon discharge from [facility]. EKG from [facility] showing normal sinus rhythm at [address]-T changes and 68 BPM with no significant ST-T changes. Labs: WBC of 9.4K, hemoglobin 15.4, platelets 260 8K. INR 0.9. Creatinine is elevated to 1.6, sodium is low 127. Magnesium 2.0, potassium 4.2. Troponin is elevated 0.19. Covid this nondetected by rapid test 08/09/2020 Patient with minimal chest pain today and he continued to be on heparin drip and nitro drip blood pressure this morning is 159/95, rest of vitals are stable. His blood pressure is 159/95, rest of vitals are stable. Heart rate 72. Hemoglobin on postoperative CBC is normal. Sodium 132, recipient is unremarkable. Creatinine is came back to normal at 1.0 We will continue with aspirin, metoprolol. [employer] team on the case and they are going to evaluated the patient. 08/10/2020 Patient is awake but aren't limited today about missing papers from his [facility], however I showed the patient the chart and all his transfer paper and in the chart, he still upset stating that there was some personal papers in the chart although he did not specify. Patient looks anxious with tremor, most likely he is going into alcohol withdrawal Patient states that he drinks liquor every day, also refused to give a quantity for home with. He is hemodynamically stable. I discussed the case with cardiology team, patient is going for cardiac cath today, patient informed Review of Systems CONSTITUTIONAL: No fever, no malaise, no fatigue. HEENT: No recent visual problems or hearing problems. Denied any sore throat. CARDIOVASCULAR: No orthopnea, PND, no palpitations, no syncope. PULMONARY: No shortness of breath, no cough, no hemoptysis. GASTROINTESTINAL: No diarrhea, no nausea, no vomiting, no abdominal pain. Normoactive bowel sounds. NEUROLOGICAL: No headaches, no weakness, no numbness. HEMATOLOGICAL: Denies any bleeding or petechiae. Active Medications Generic Name Dose Route Start Last Admin Trade Name Freq PRN Reason Stop Dose Admin Acetaminophen 650 mg 08/09/20 01:22 08/09/20 01:33 Acetaminophen Tab 325 Mg Tab PO 650 mg Q6HR PRN Administration Fever and/ or Pain Aspirin 325 mg 08/09/20 09:00 Aspirin 325 Mg Tab PO DAILY [facility] Buspirone HCl 10 mg 08/08/20 21:00 08/08/20 21:41 Buspirone Hcl 10 Mg Tab PO 10 mg BID [facility] Administration Gabapentin 300 mg 08/08/20 22:00 08/08/20 22:31 Gabapentin 300 Mg Cap PO Not Given TID [facility] Heparin Sodium (Porcine) 0 unit 08/08/20 12:55 08/09/20 01:41 Heparin Sodium,Porcine 5,000 Unit/Ml 1 Ml Vial IV 2,225 unit Q6HR PRN Administration Low PTT Protocol Hydralazine HCl 10 mg 08/09/20 03:37 08/09/20 03:52 Hydralazine Hcl 20 Mg/Ml 1 Ml Vial IVP 10 mg Q6HR PRN Administration Blood Pressure - High Heparin Sodium/Sodium Chloride 250 mls @ 10.005 mls/hr 08/08/20 13:00 08/09/20 07:04 25,000 unit/ Sodium Chloride IV 13.14 units/kg/hr .Q24H [facility] 11.801 mls/hr Administration Protocol 11.14 UNITS/KG/HR Lisinopril 20 mg 08/08/20 21:00 08/08/20 21:41 Lisinopril 20 Mg Tab PO 20 mg HS [facility] Administration Metoprolol Tartrate 50 mg 08/08/20 15:45 08/08/20 16:37 Metoprolol Tartrate 50 Mg Tab PO 50 mg DAILY [facility] Administration Nitroglycerin 0.4 mg 08/08/20 12:55 08/09/20 06:57 Nitroglycerin Sl Tabs 0.4 Mg Tab SUBLINGUAL 0.4 mg Q5M PRN Administration Chest Pain Sodium Chloride 10 ml 08/08/20 21:00 08/08/20 21:41 Sodium Chloride 0.9% Flush 10 Ml Syringe IV 10 ml BID [facility] Administration Objective - Vital Signs Vital signs: Vital Signs Temp 98.4 F 08/10/20 08:00 Pulse 81 08/10/20 08:00 Resp 18 08/10/20 08:00 BP 148/73 08/10/20 08:00 Pulse Ox 95 08/10/20 08:00 Intake & Output 08/09/20 08/10/20 08/10/20 18:59 06:59 18:59 Intake Total 305.299 250 Output Total 250 Balance 305.299 0 Weight 87.5 kg 86.2 kg Intake: Intake, IV Titration 65.299 250 Amount Heparin Sod,Pork in 0.45% 65.299 250 NaCl 25,000 unit In 0.45 % NaCl 1 250ml.bag @ 11. 14 UNITS/KG/HR 10.005 mls /hr IV .Q24H [facility] Rx#: [id number] Oral 240 Output: Urine 250 Other: Voiding Method Urinal Urinal Urinal # Voids 2 1 2 - Exam GENERAL: The patient is alert and oriented x3, not in any acute distress. Well developed, well nourished. HEENT: Pupils are round and equally reacting to light. EOMI. No scleral icterus. No conjunctival pallor. Normocephalic, atraumatic. No pharyngeal erythema. No thyromegaly. CARDIOVASCULAR: S1 and S2 present. No murmurs, rubs, or gallops. PULMONARY: Chest is clear to auscultation, no wheezing or crackles. ABDOMEN: Soft, nontender, nondistended, normoactive bowel sounds. No palpable organomegaly. MUSCULOSKELETAL: No joint swelling or deformity. EXTREMITIES: No cyanosis, clubbing, or pedal edema. NEUROLOGICAL: Gross neurological examination did not reveal any focal deficits. SKIN: No rashes. no petechiae. - Labs CBC & Chem 7: 08/10/20 06:46 08/10/20 06:46 Labs: Abnormal Lab Results - Last 24 Hours (Table) 08/10/20 08/10/20 08/10/20 Range/Units 06:46 06:46 06:46 MCV 101.7 H (80.0-100.0) fL APTT 34.8 H (22.0-30.0) sec Sodium 132 L (137-145) mmol/L Glucose 119 H (74-99) mg/dL Assessment and Plan Assessment: possible non-STEMI alcohol withdrawal at risk of delirium tremens Hypertension, uncontrolled on admission acute kidney injury Hyponatremia Nicotine dependence Plan: this is a pleasant 74 years old male who presents with non-STEMI. Continue with heparin drip, nitroglycerindrip.cardiology team are planning to do cardiac cath today. Continue with CIKS protocol for alcohol withdrawal. Continue with thiamine Labs and medication were reviewed.. Continue same treatment. Continue with symptomatic treatment. Resume home medication. Monitor lytes and vitals. DVT and GI prophylaxis. Further recommendations depends on the clinical course of the patient DVT prophylaxis: heparin GI Prophylaxis: Pepcid Prognosis is guarded
[2020-08-10] MEDS ORDERED: IV FLUID CONTINUATION 1,000 ML IV ONE (11:34)
--- NOTE | 2020-08-10 12:15 | P.PN ---
Subjective Progress Note Date: 08/10/20 HISTORY OF PRESENT ILLNESS: Patient examined this morning at the bedside. He denies chest pain or pressure. Denies shortness of breath. He remains on IV heparin. Echocardiogram completed revealed ejection fraction between 50 and 55%, mild mitral regurgitation, and mild tricuspid regurgitation. PHYSICAL EXAM: VITAL SIGNS: Reviewed. GENERAL: Well-developed in no acute distress. NECK: Supple. No JVD or thyromegaly LUNGS: Respirations even and unlabored. Lungs diminished. HEART: Regular rate and rhythm. S1 and S2 heard. EXTREMITIES: Normal range of motion. No clubbing or cyanosis. Peripheral pulses intact. No lower extremity edema ASSESSMENT: Chest pain Hypertension Daily alcohol use Nicotine dependence PLAN: Continue current cardiac medications Patient to undergo cardiac catheterization today with Dr. Enriquez Nurse practitioner note has been reviewed by physician. Signing provider agrees with the documented findings, assessment, and plan of care. Objective - Vital Signs Vital signs: Vital Signs Temp 98.6 F 08/10/20 11:36 Pulse 75 08/10/20 11:36 Resp 18 08/10/20 11:36 BP 158/77 08/10/20 11:36 Pulse Ox 94 L 08/10/20 11:36 Intake & Output 08/09/20 08/10/20 08/10/20 18:59 06:59 18:59 Intake Total 305.299 250 120 Output Total 250 Balance 305.299 0 120 Weight 87.5 kg 86.2 kg Intake: Intake, IV Titration 65.299 250 Amount Heparin Sod,Pork in 0.45% 65.299 250 NaCl 25,000 unit In 0.45 % NaCl 1 250ml.bag @ 11. 14 UNITS/KG/HR 10.005 mls /hr IV .Q24H [facility] Rx#: [id number] Oral 240 120 Output: Urine 250 Other: Voiding Method Urinal Urinal Urinal # Voids 2 1 3 # Bowel Movements 0 - Labs CBC & Chem 7: 08/10/20 06:46 08/10/20 06:46 Labs: Abnormal Lab Results - Last 24 Hours (Table) 08/10/20 08/10/20 08/10/20 Range/Units 06:46 06:46 06:46 MCV 101.7 H (80.0-100.0) fL APTT 34.8 H (22.0-30.0) sec Sodium 132 L (137-145) mmol/L Glucose 119 H (74-99) mg/dL
[2020-08-10] MEDS ORDERED: LIDOCAINE 1% INJ 10MG/ML (20 ML MDV) SQ ONE (12:17)
[2020-08-10] MEDS ORDERED: MIDAZOLAM 2 MG/2 ML VIAL IVP ONE (12:17)
[2020-08-10] MEDS ORDERED: NITROGLYCERIN SL TABS 0.4 MG TAB SUBLINGUAL ONE (12:20)
[2020-08-10] MEDS: VERAPAMIL SYRINGE (5 MG/10 ML) INTRAARTER ONE ×2 (12:23→13:11)
[2020-08-10] MEDS ORDERED: HEPARIN SODIUM 1,000 UN/ML (10ML VL) IV ONE (12:23)
[2020-08-10] MEDS ORDERED: VERAPAMIL SYRINGE (5 MG/10 ML) INTRAARTER ONE (12:31)
[2020-08-10] MEDS ORDERED: BIVALIRUDIN BOLUS 250 MG/50 ML IV ONE (12:48)
[2020-08-10] MEDS ORDERED: BIVALIRUDIN 250 MG in SODIUM CHLORIDE 0.9% 37 ML IV ONE (12:48)
[2020-08-10] MEDS ORDERED: IOPAMIDOL-370 100ML BTL INJ ONE ×2 (12:50→13:11)
[2020-08-10] MEDS ORDERED: NITROGLYCERIN 1000MCG/10ML SYRINGE INTRACORON ONE (12:57)
[2020-08-10] MEDS ORDERED: CLOPIDOGREL 75 MG TAB PO ONE (13:10)
[2020-08-10] MEDS ORDERED: amLODIPine 5 MG TAB PO PRN (13:36)
--- NOTE | 2020-08-10 14:55 | CC ---
CARDIAC CATHETERIZATION REPORT DATE OF SERVICE: 08/10/2020. PROCEDURE: 1. Left heart catheterization and coronary angiography. 2. PTCA and stenting of the major ramus intermedius branch of circumflex. PERFORMED BY: Dr. Steve Enriquez. Moderate conscious sedation time was 53 minutes. Patient was administered Versed. Oxygen saturation, hemodynamics and EKG were monitored closely. CLINICAL INFORMATION: Mr. Evens Joseph is a 74-year-old gentleman with a history of hypertension and hypercholesterolemia. He also has history of alcoholism and smoking. He came into the hospital with chest pain had a borderline troponin elevation, was transferred from [facility]. He was advised cardiac catheterization given his presentation. The risks, benefits, options and rationale were explained to the patient. I talked to him at length before the procedure and explained to him the rationale. He understood all details and wished to proceed with the procedure. PROCEDURE NOTE: Under local anesthesia and strict aseptic precautions, a 6-Venezuelan introducer was placed in the right radial artery. Using a JL3.5 and JR4 catheters, I performed selective coronary angiography and the same right Evangelina catheter was used to check LV pressure but LV gram was not performed. Following this, I proceeded with intervention of a 90% stenosed ramus intermedius and following this procedure the sheath was taken out and a TR band applied as per protocol and patient was sent to the room in a stable condition. Results were discussed with the patient and I also spoke to his at length by phone. CARDIAC CATHETERIZATION FINDINGS: Left ventricular end-diastolic pressure was 7 mmHg without any gradient across the aortic valve. CORONARY ANGIOGRAPHY FINDINGS: RIGHT CORONARY ARTERY: This is a very large superdominant vessel, moderate calcification distally, bifurcates into PDA and PLV and supplies a sizable amount of myocardium. There is no significant disease in the super dominant RCA. LEFT MAIN CORONARY ARTERY: This is a very long patent disease-free vessel that trifurcates into LAD, ramus intermedius and circumflex. Left main itself is free of significant disease. LEFT ANTERIOR DESCENDING CORONARY ARTERY: Good caliber vessel, extends along the anterior wall, gives off septal branches and also a good-sized diagonal branch. The diagonal branch and its origin has about a 40% narrowing. Mid LAD has another 40% multiple areas of narrowing. There is mild to moderate calcification and it is a fair caliber, fair distribution vessel without any significant critical stenosis in the LAD system. RAMUS INTERMEDIUS This is a large caliber, large distribution vessel, quite tortuous and in the proximal portion after a secondary branch, there is a 90% eccentric lesion with mild calcification and this appears to be a significant 90% lesion after which the flow is good and it is a large caliber tortuous vessel beyond the above-mentioned stenosis. LEFT POSTERIOR CIRCUMFLEX CORONARY ARTERY: Small caliber, mild to moderate diffuse disease. No significant stenosis. There is a 30% to 40% narrowing. The vessel is small and the distal vessel is moderate size in caliber and relatively small-to- moderate size in distribution but no significant disease. Left ventriculogram was not performed. FINAL IMPRESSION: 1. This patient has normal filling pressures. No gradient across aortic valve. 2. A superdominant right coronary artery without significant disease, moderate calcification. 3. Left main is free of significant disease. 4. LAD has a 30%-40% moderate diffuse disease throughout. 5. The ramus intermedius is a large caliber vessel with a focal 90% stenosis with mild calcification. 6. Circumflex is nondominant, has a fair caliber. [id number] diffuse noncritical disease noted. RECOMMENDATIONS: I recommended PCI of the ramus intermedius and proceeded to perform this in the same setting. PCI PROCEDURE DETAILS: I used a [employer] left 3.5 guide catheter to cannulate the left coronary artery. A run- through wire was used to cross the lesion. Predilatation was performed with 3.0 caliber 15 mm Trek balloon. I then deployed a 4.0 caliber 15 mm Xience stent at 12 atmospheres. Patient had mild chest discomfort but significant precordial ST depression. Excellent angiographic result was achieved without complication. He received Angiomax bolus and infusion as per protocol and 600 mg of Plavix was given. Excellent angiographic result was achieved without complication. Results were discussed with the patient and I also spoke to his by phone. I expect he will be discharged tomorrow if he remains stable. MMODL / IJN: [id number] /
[2020-08-10] MEDS: SODIUM CHLORIDE 0.9% 1,000 ML IV SCH (16:03)
[2020-08-10] MEDS: THIAMINE 100 MG/ML 2 ML VIAL IVP SCH (16:03)
[2020-08-10 16:34] LABS: Hemoglobin A1C 6.4 % (4.0-6.0)
[2020-08-10] MEDS ORDERED: ALBUTEROL NEBULIZED 2.5 MG/3 ML INHALATION STA (16:39)
[2020-08-10] MEDS ORDERED: ALBUTEROL NEBULIZED 2.5 MG/3 ML INHALATION PRN (16:39)
[2020-08-10] MEDS ORDERED: FUROSEMIDE 10 MG/ML 2 ML VIAL IV ONE (16:40)
[2020-08-10] MEDS: lisinopriL 20 MG TAB PO SCH (21:37)
[2020-08-11] MEDS: SODIUM CHLORIDE 0.9% 1,000 ML IV SCH (02:41)
[2020-08-11 04:25] VITALS: RESP 18; TEMP 98.4
[2020-08-11] MEDS: GABAPENTIN 300 MG CAP PO SCH (08:27)
[2020-08-11] MEDS: busPIRone HCl 10 MG TAB PO SCH (08:27)
[2020-08-11] MEDS: METOPROLOL TARTRATE 50 MG TAB PO SCH (08:27)
[2020-08-11] MEDS: ASPIRIN 81 MG PO SCH (08:27)
[2020-08-11] MEDS: lisinopriL 20 MG TAB PO SCH (08:27)
[2020-08-11] MEDS: THIAMINE 100 MG/ML 2 ML VIAL IVP SCH (08:28)
[2020-08-11] MEDS ORDERED: CLOPIDOGREL 75 MG TAB PO SCH (09:00)
[2020-08-11 09:17] LABS: African American GFR (CKD) >90 (>60 ml/min/1.73 sqM); Anion Gap 8 mmol/L; Blood Urea Nitrogen 13 mg/dL (9-20); Calcium 9.1 mg/dL (8.4-10.2); Carbon Dioxide 26 mmol/L (22-30); Chloride 98 mmol/L (98-107); Glucose 238 mg/dL (74-99); Non-African American GFR(CKD) 84 (>60 ml/min/1.73 sqM); Potassium 4.2 mmol/L (3.5-5.1); Sodium 132 mmol/L (137-145)
[2020-08-11 09:20] VITALS: BP 134/71; PULSE 95
[2020-08-11 09:23] LABS: Basophils % (A) 0 %; Eosinophils # (A) 0.2 k/uL (0-0.7); Eosinophils % (A) 2 %; HCT 48.2 % (39.0-53.0); HGB 15.8 gm/dL (13.0-17.5); Lymphocytes # (A) 1.3 k/uL (1.0-4.8); Lymphocytes % (A) 17 %; MCH 32.7 pg (25.0-35.0); MCHC 32.8 g/dL (31.0-37.0); MCV 99.7 fL (80.0-100.0); Mean Platelet Volume 6.4; Monocytes # (A) 0.5 k/uL (0-1.0); Monocytes % (A) 7 %; Neutrophils # (A) 5.2 k/uL (1.3-7.7); Neutrophils % (A) 71 %; Platelet Count 290 k/uL (150-450); RBC 4.83 m/uL (4.30-5.90); RDW 12.5 % (11.5-15.5); WBC 7.3 k/uL (3.8-10.6)
--- NOTE | 2020-08-11 11:36 | P.PN ---
Subjective Progress Note Date: 08/11/20 This is a 74-year-old gentleman who follows with Dr. Zehra Enriquez in the office. He has a history of hypertension, questionable prior myocardial infarction in the past, he never underwent a cardiac catheterization in the past according to him, history of nicotine dependence, patient also drinks alcoholic beverages daily. Patient did have a nuclear stress test performed in the office in June 2018 which revealed some inferior lateral fixed defect with global decrease in contractility. The patient presented to [facility] with symptoms of chest discomfort. He states that he woke up in the morning had midsternal chest discomfort, states that it was a moderate to severe, worsened with taking a deep breath. Patient does have a productive cough, he states that this is normal for him for several years of smoking. He does state at that time it was hard to take a deep breath but didn't feel more short of breath than his usual. He denies any diaphoresis. EKG shows a normal sinus rhythm with a right bundle branch block pattern, left anterior fascicular block. Upon review of the rhythm strips from the EMS, it does appear that during time of chest pain patient did have some ST changes noted. His blood pressure on arrival was 178/114, heart rate in the 70s, respirations 18, temp 98.2, 97% on 2 L of oxygen. He was initiated here on IV heparin and IV nitroglycerin drip. Blood pressure this morning 158/90 with a heart rate in the 70s. IV nitroglycerin was discontinued this morning because patient was complaining of a severe headache. White blood cell count 8.2, hemoglobin 16.1, platelet count 279. Sodium 131, potassium 4.4, BUN 30, creatinine 1.3. Troponins 0.025, 0.0-4, 0.018. Patient is currently on IV heparin drip, aspirin, lisinopril 20 mg daily, metoprolol sesame 50 mg daily. We will start the patient on Lipitor, obtain an echocardiogram with Doppler study. 08/11/2020 Patient was taken to the cardiac catheterization lab yesterday underwent PTCA and stenting of a major ramus intermediate branch of the circumflex. Patient was seen and examined this morning, denied any chest pain or difficulty in breathing. Blood pressure 134/70 with a heart rate in the 70s, 97% on room air. White blood cell count 7.3, hemoglobin 15.8, platelet count 290. Sodium 132, potassium 4.2, BUN 13, creatinine 0.9. Objective - Vital Signs Vital signs: Vital Signs Temp 98.4 F 08/11/20 04:00 Pulse 95 08/11/20 08:00 Resp 18 08/11/20 08:00 BP 134/71 08/11/20 08:00 Pulse Ox 97 08/11/20 08:00 Intake & Output 08/10/20 08/11/20 08/11/20 18:59 06:59 18:59 Intake Total 550 Output Total 900 600 Balance -350 -600 Weight 85.3 kg Intake: IV 70 Oral 480 Output: Urine 900 600 Other: Voiding Method Urinal Urinal # Voids 4 1 # Bowel Movements 1 - Exam PHYSICAL EXAMINATION: GENERAL: 74-year-old gentleman in no acute distress at the time of my examination HEENT: Head is atraumatic, normocephalic. Pupils equal, round. Sclera anicteric. Conjunctiva are clear. Mucous membranes of the mouth are moist. Neck is supple. There is no elevated jugular venous pressure. No carotid bruit is heard. HEART EXAMINATION: Heart S1, S2 normal. No murmur or gallop heard. CHEST EXAMINATION:Lungs reveal scattered coarse rhonchi throughout. ABDOMEN: Soft, obese, nontender. Bowel sounds are heard. No organomegaly noted. EXTREMITIES: 2+ peripheral pulses with trace evidence of peripheral edema and no calf tenderness noted. NEUROLOGIC patient is awake, alert and oriented X3 - Labs CBC & Chem 7: 08/11/20 08:13 08/11/20 08:13 Labs: Abnormal Lab Results - Last 24 Hours (Table) 08/10/20 08/11/20 Range/Units 06:58 08:13 Sodium 132 L (137-145) mmol/L Glucose 238 H (74-99) mg/dL Hemoglobin A1c 6.4 H (4.0-6.0) % Assessment and Plan Plan: Assessment and plan #1 chest pain, possible acute coronary syndrome. Troponins of 0.025, 0.0-4, 0.018. EKG shows a normal sinus rhythm with a right bundle branch block pattern and left anterior block. Patient underwent angioplasty and stenting of the major ramus intermediate branch of the circumflex #2 accelerated hypertension #3 nicotine dependence #4 prior silent myocardial infarction. The patient #5 daily EtOH use Plan From cardiology's perspective patient may be able to be discharged home today, we'll make a follow-up appointment in the office post discharge. Continue aspirin 81 mg daily, Lipitor 80 mg daily, Plavix 75 mg daily, lisinopril 20 mg twice a day, metoprolol 50 mg twice a day, sublingual nitroglycerin as needed for chest pain. DNP note has been reviewed, I agree with a documented findings and plan of care. Patient was seen and examined.
--- NOTE | 2020-08-11 12:16 | P.PN ---
Subjective 74 years old male with past medical history of hypertension, possible myocardial infarction, smokes cigarettes.patient was transferred from [facility] for chest pain.patient states that he has chest pain of one-day duration, and the left side, nonradiating, rated as 10/10 in severity currently feels better after he got morphine. With little dyspnea. Patient denies abdominal pain or nausea vomiting. No diarrhea. No burning in urination. No fever patient states that he smokes half pack per day, he drinks liquor dailybut he did not specify how Much. He denies illicit drugs on admission his vitals were stable however his blood pressure was on the high side 181/100. EKG showing sinus rhythm with PACs, with a rate at 74 with bifascicular block. at [facility] his troponin were elevated at 0.19 on admission his blood pressure was elevated 181/100, improved to 151/100 Patient is already on heparin drip and nitroglycerin drips upon discharge from [facility]. EKG from [facility] showing normal sinus rhythm at [address]-T changes and 68 BPM with no significant ST-T changes. Labs: WBC of 9.4K, hemoglobin 15.4, platelets 260 8K. INR 0.9. Creatinine is elevated to 1.6, sodium is low 127. Magnesium 2.0, potassium 4.2. Troponin is elevated 0.19. Covid this nondetected by rapid test 08/09/2020 Patient with minimal chest pain today and he continued to be on heparin drip and nitro drip blood pressure this morning is 159/95, rest of vitals are stable. His blood pressure is 159/95, rest of vitals are stable. Heart rate 72. Hemoglobin on postoperative CBC is normal. Sodium 132, recipient is unremarkable. Creatinine is came back to normal at 1.0 We will continue with aspirin, metoprolol. [facility] team on the case and they are going to evaluated the patient. 08/10/2020 Patient is awake but aren't limited today about missing papers from his [facility], however I showed the patient the chart and all his transfer paper and in the chart, he still upset stating that there was some personal papers in the chart although he did not specify. Patient looks anxious with tremor, most likely he is going into alcohol withdrawal Patient states that he drinks liquor every day, also refused to give a quantity for home with. He is hemodynamically stable. I discussed the case with cardiology team, patient is going for cardiac cath today, patient informed 08/11/2020 I saw the patient as a follow-up for Dr. shipman. Patient the had a cardiac cath eterization and had stenting to major ramus intermediate branch of circumflex patient was treated for accelerated hypertension as well dose of SUREKHA inhibitor was increased and patient was also started on calcium channel arlene. Patient had continued nicotine dependence for which counseling was provided and patient will be given albuterol has mild wheezing on exam PHYSICAL EXAMINATION: GENERAL: The patient is alert and oriented x3, not in any acute distress. Well developed, well nourished. HEENT: Pupils are round and equally reacting to light. EOMI. No scleral icterus. No conjunctival pallor. Normocephalic, atraumatic. No pharyngeal erythema. No thyromegaly. CARDIOVASCULAR: S1 and S2 present. No murmurs, rubs, or gallops. PULMONARY:bit tight with mild wheezing ABDOMEN: Soft, nontender, nondistended, normoactive bowel sounds. No palpable organomegaly. MUSCULOSKELETAL: No joint swelling or deformity. EXTREMITIES: No cyanosis, clubbing, or pedal edema. NEUROLOGICAL: Gross neurological examination did not reveal any focal deficits. SKIN: No rashes. Assessment and Plan possible non-STEMI alcohol withdrawal was monitored for delirium tremens Hypertension, uncontrolled , accelerated acute kidney injury Hyponatremia: Etiology is not clear further workup as an outpatient Nicotine dependence Objective - Vital Signs Vital signs: Vital Signs Temp 98.4 F 08/11/20 04:00 Pulse 95 08/11/20 08:00 Resp 18 08/11/20 08:00 BP 134/71 08/11/20 08:00 Pulse Ox 97 08/11/20 08:00 Intake & Output 08/10/20 08/11/20 08/11/20 18:59 06:59 18:59 Intake Total 550 Output Total 900 600 Balance -350 -600 Weight 85.3 kg Intake: IV 70 Oral 480 Output: Urine 900 600 Other: Voiding Method Urinal Urinal # Voids 4 1 # Bowel Movements 1 - Labs CBC & Chem 7: 08/11/20 08:13 08/11/20 08:13 Labs: Abnormal Lab Results - Last 24 Hours (Table) 11/12/20 11/13/20 Range/Units 06:58 08:13 Sodium 132 L (137-145) mmol/L Glucose 238 H (74-99) mg/dL Hemoglobin A1c 6.4 H (4.0-6.0) %
[2020-08-11] MEDS ORDERED: ATORVASTATIN 80 MG TAB PO SCH (21:00)
== END 2020-08-11 14:35 | disposition home or self-care (01) | DRG 247 ==
LOC: EC 12:54 → 3SCARD 12:56
PROVIDERS: ADMIT Internal Medicine; ATTEND Internal Medicine
PROC: 4A023N7 Measurement of Cardiac Sampling and Pressure, Left Heart, Percutaneous Approach (ICD-10-PCS; principal; 2020-08-10 11:30)
PROC: 027034Z Dilation of Coronary Artery, One Artery with Drug-eluting Intraluminal Device, Percutaneous Approach (ICD-10-PCS; principal; 2020-08-10 11:30)
PROC: B2111ZZ Fluoroscopy of Multiple Coronary Arteries using Low Osmolar Contrast (ICD-10-PCS; principal; 2020-08-10 11:30)
DX: I21.4 Non-ST elevation (NSTEMI) myocardial infarction (principal); E87.1 Hypo-osmolality and hyponatremia; F10.239 Alcohol dependence with withdrawal, unspecified; I45.2 Bifascicular block; N17.9 Acute kidney failure, unspecified; I25.10 Atherosclerotic heart disease of native coronary artery without angina pectoris; F17.210 Nicotine dependence, cigarettes, uncomplicated; I10 Essential (primary) hypertension; I25.2 Old myocardial infarction; Z79.82 Long term (current) use of aspirin; Z79.899 Other long term (current) drug therapy; Z79.1 Long term (current) use of non-steroidal anti-inflammatories (NSAID); Z79.891 Long term (current) use of opiate analgesic; R51.9 Headache, unspecified
CPT/HCPCS: 80048; 80061; 83036; 84484; 85025; 85730; 93005; 93306; 93458; 94640; 96365; 96366; 96375; 99285